=== PATIENT | male | born 1975 | race Caucasian/White ===

== ENCOUNTER 2019-02-24 13:34 | Inpatient (IN) | payer BC, OTHER ==
[2019-02-24] MEDS ORDERED: SODIUM CHLORIDE 0.9% 1,000 ML IV STA ×2 (14:10)
[2019-02-24] MEDS ORDERED: SODIUM CHLORIDE 0.9% 500 ML 500 ML IV STA (14:10)
[2019-02-24] MEDS ORDERED: MORPHINE SULFATE 4 MG/ML SYRINGE IV STA (14:10)
[2019-02-24] MEDS ORDERED: ACETAMINOPHEN TAB 325 MG TAB PO STA (14:11)
--- NOTE | 2019-02-24 14:36 | ED ---
Abdominal Pain HPI - General Chief Complaint: Abdominal Pain Stated Complaint: Abdominal pain Time Seen by Provider: 02/24/19 14:10 Source: patient Mode of arrival: ambulatory Limitations: no limitations - History of Present Illness Initial Comments: 43-year-old male with no past medical history presenting today for chief complaint of periumbilical and lower abdominal pain. Patient states that since Saturday he has had vomiting followed by periumbilical pain that is also found in the lower quadrants the abdomen including the right lower quadrant. Patient states that sharp in nature. Patient states has been worsening since Saturday. Patient denies diarrhea. States he started to have a fever today. Denies melena hematochezia. Denies hematemesis. Patient denies upper respiratory symptoms or sick contacts. Denies VELAZQUEZ, neck stiffness or previous abdominal surgeries. Patient currently complaining of nausea, chills. Patient remaining ROS (-), denies chest pain or SOB, upper abdominal pain. Patient febrile on arrival. - Related Data Home Medications Medication Instructions Recorded Confirmed Acetaminophen Tab [Tylenol Tab] 500 mg PO Q6H 02/24/19 02/24/19 Allergies Allergy/AdvReac Type Severity Reaction Status Date / Time No Known Allergies Allergy Verified 02/24/19 14:43 Review of Systems ROS Statement: Those systems with pertinent positive or pertinent negative responses have been documented in the HPI. ROS Other: All systems not noted in ROS Statement are negative. Past Medical History Past Medical History: No Reported History History of Any Multi-Drug Resistant Organisms: None Reported Past Surgical History: No Surgical Hx Reported Past Psychological History: No Psychological Hx Reported Smoking Status: Current every day smoker Past Alcohol Use History: None Reported Past Drug Use History: None Reported General Exam - General Exam Comments Initial Comments: General: The patient is awake and alert, appears uncomfortable. Eye: Pupils are equal, round and reactive to light, extra-ocular movements are intact. No nystagmus. There is normal conjunctiva bilaterally. No signs of icterus. Ears, nose, mouth and throat: There are moist mucous membranes and no oral lesions. Cardiovascular: There is a regular rate and rhythm. No murmur, rub or gallop is appreciated. Respiratory: Lungs are clear to auscultation, respirations are non-labored, breath sounds are equal. No wheezes, stridor, rales, or rhonchi. Gastrointestinal: Soft, non-distended, diffusely tender to palpation of the lower aspect of the abdomen without masses or organomegaly noted. There is no rebound. Some guarding is present. No CVA tenderness. Bowel sounds are unremarkable. Musculoskeletal: Normal ROM, no tenderness. Strength 5/5. Sensation intact. Pulses equal bilaterally 2+. Neurological: A&O x 3. CN II-XII intact grossly, There are no obvious motor or sensory deficits. Coordination appears grossly intact. Speech is normal. Skin: Skin is warm and dry and no rashes or lesions are noted. Psychiatric: Cooperative, appropriate mood & affect, normal judgment. Limitations: no limitations Course Vital Signs 02/24/19 02/24/19 02/24/19 13:35 17:45 20:53 Temperature 101.2 F H 102.0 F H 99.1 F Pulse Rate 94 81 90 Respiratory 20 18 18 Rate Blood Pressure 112/76 110/76 112/77 O2 Sat by Pulse 100 95 98 Oximetry Medical Decision Making - Medical Decision Making 43-year-old male presented for low abdominal pain x3 days. Fever. CT revealed findings consistent with a very enlarged appendicitis with abnormalities consistent with a microperforation. Patient was started on Zosyn. Patient has been given IV hydration as well as IV pain medications in the emergency department. Given patient's fever uncontrolled patient will be given ofirmev. Patient states was discussed mentating provider Dr. Yancey. He did contact on- call surgeon Dr. Carrasquillo. Who accepted patient admission states he states he will perform surgery tomorrow patient ordered NPO, surgeon is agreeable to Zosyn every 8 hours. Patient is IV antiemetics as well as IV analgesics ordered. D iscussed CT results with patient he is agreeable with admission. - Lab Data Result diagrams: 02/24/19 15:25 02/24/19 15:25 Lab Results 02/24/19 02/24/19 02/24/19 Range/Units 15:25 15:25 15:25 WBC 9.5 (3.8-10.6) k/uL RBC 4.88 (4.30-5.90) m/uL Hgb 15.4 (13.0-17.5) gm/dL Hct 43.5 (39.0-53.0) % MCV 89.3 (80.0-100.0) fL MCH 31.6 (25.0-35.0) pg MCHC 35.4 (31.0-37.0) g/dL RDW 11.9 (11.5-15.5) % Plt Count 178 (150-450) k/uL Neutrophils % 90 % Lymphocytes % 5 % Monocytes % 4 % Eosinophils % 0 % Basophils % 0 % Neutrophils # 8.6 H (1.3-7.7) k/uL Lymphocytes # 0.5 L (1.0-4.8) k/uL Monocytes # 0.4 (0-1.0) k/uL Eosinophils # 0.0 (0-0.7) k/uL Basophils # 0.0 (0-0.2) k/uL Sodium 137 (137-145) mmol/L Potassium 3.8 (3.5-5.1) mmol/L Chloride 101 (98-107) mmol/L Carbon Dioxide 24 (22-30) mmol/L Anion Gap 12 mmol/L BUN 12 (9-20) mg/dL Creatinine 0.84 (0.66-1.25) mg/dL Est GFR (CKD-EPI)AfAm >90 (>60 ml/min/1.73 sqM) Est GFR (CKD-EPI)NonAf >90 (>60 ml/min/1.73 sqM) Glucose 107 H (74-99) mg/dL Plasma Lactic Acid Kwan 1.1 (0.7-2.0) mmol/L Calcium 9.7 (8.4-10.2) mg/dL Total Bilirubin 1.1 (0.2-1.3) mg/dL AST 33 (17-59) U/L ALT 20 L (21-72) U/L Alkaline Phosphatase 81 (38-126) U/L Total Protein 7.5 (6.3-8.2) g/dL Albumin 4.4 (3.5-5.0) g/dL Amylase 49 (30-110) U/L Lipase 25 (23-300) U/L Disposition Clinical Impression: Appendicitis, Abdominal pain, Appendicitis with perforation Disposition: ADMITTED IP TO THIS [facility] Condition: Stable Is patient prescribed a controlled substance at d/c from ED?: No Time of Disposition: 18:32 Decision to Admit Reason: Admit from EC Decision Date: 02/24/19 Decision Time: 18:32
[2019-02-24] MEDS: ONDANSETRON 4 MG/2 ML VIAL IVP STA (15:35)
[2019-02-24] MEDS ORDERED: PIPERACILLIN-TAZOBACTAM 3.375 GM in SODIUM CHLORIDE 0.9% 100 ML IVPB STA (15:48)
[2019-02-24 15:54] LABS: ALT 20 U/L (21-72); AST 33 U/L (17-59); African American GFR (CKD) >90 (>60 ml/min/1.73 sqM); Albumin 4.4 g/dL (3.5-5.0); Alkaline Phosphatase 81 U/L (38-126); Amylase 49 U/L (30-110); Anion Gap 12 mmol/L; Blood Urea Nitrogen 12 mg/dL (9-20); Calcium 9.7 mg/dL (8.4-10.2); Carbon Dioxide 24 mmol/L (22-30); Chloride 101 mmol/L (98-107); Glucose 107 mg/dL (74-99); Potassium 3.8 mmol/L (3.5-5.1); Sodium 137 mmol/L (137-145); Total Bilirubin 1.1 mg/dL (0.2-1.3); Total Protein 7.5 g/dL (6.3-8.2)
[2019-02-24 16:39] LABS: Basophils % (A) 0 %; Eosinophils % (A) 0 %; HCT 43.5 % (39.0-53.0); HGB 15.4 gm/dL (13.0-17.5); Lymphocytes # (A) 0.5 k/uL (1.0-4.8); Lymphocytes % (A) 5 %; MCH 31.6 pg (25.0-35.0); MCHC 35.4 g/dL (31.0-37.0); MCV 89.3 fL (80.0-100.0); Mean Platelet Volume 6.8; Monocytes # (A) 0.4 k/uL (0-1.0); Monocytes % (A) 4 %; Neutrophils # (A) 8.6 k/uL (1.3-7.7); Neutrophils % (A) 90 %; Platelet Count 178 k/uL (150-450); RBC 4.88 m/uL (4.30-5.90); RDW 11.9 % (11.5-15.5); WBC 9.5 k/uL (3.8-10.6)
[2019-02-24] MEDS ORDERED: MORPHINE SULFATE 4 MG/ML SYRINGE IVP STA (17:32)
[2019-02-24] MEDS ORDERED: IBUPROFEN 800 MG TAB PO STA (18:11)
--- NOTE | 2019-02-24 18:29 | CT ---
EXAMINATION TYPE: CT abdomen pelvis w IV and oral con DATE OF EXAM: 02/24/2019 COMPARISON: None HISTORY: RLQ pain fever CT DLP: 844.8 mGycm Automated exposure control for dose reduction was used. TECHNIQUE: Helical acquisition of images was performed from the lung bases through the pelvis. CONTRAST: Performed without Oral Contrast and with IV Contrast, patient injected with 100 mL of Isovu e 300. FINDINGS: LUNG BASES: No significant abnormality is appreciated. LIVER/GB: No significant abnormality is appreciated. PANCREAS: No significant abnormality is seen. SPLEEN: There is mild splenomegaly noted measuring 14 x 12 x 6 cm. No focal splenic lesions. ADRENALS: No significant abnormality is seen. KIDNEYS: No significant abnormality is seen. RETROPERITONEAL ADENOPATHY: None visualized REPRODUCTIVE ORGANS: No significant abnormality is seen URINARY BLADDER: No significant abnormality is seen. PELVIC ADENOPATHY: None visualized. OSSEOUS STRUCTURES: No significant abnormality is seen. BOWEL: The appendix is located at McBurney's point. It is markedly distended and indistinct, with ca liber measuring 17-18 mm and with associated prominent periappendiceal edematous reticulation of the adipose. Moreover, there are tiny bubbles of extraluminal gas in the chris-appendiceal adipose, and th ere is secondary inflammation of the terminal ileum with associated fluid-distended but not dilated s mall bowel loops throughout the 4 quadrants. These small bowel loops measure up to 2.7 cm caliber. Th e oral contrast reached the transverse colon. PERITONEAL CAVITY: There is no pneumoperitoneum. A small volume of fluid seen dependently within the pelvis, likely reactive. OTHER: No acute vascular findings. IMPRESSION: COMPLICATED ACUTE APPENDICITIS DISCUSSED, BUT NEGATIVE FOR ABSCESS. Mild splenomegaly incidentally noted. Results discussed just now with the ordering clinician, to ensure intact communications.
[2019-02-24] MEDS ORDERED: ACETAMINOPHEN IV (For NPO) 1,000 MG in EMPTY BAG 1 BAG IVPB ONE (18:31)
[2019-02-24] MEDS ORDERED: NALOXONE 0.4 MG/ML 1 ML VIAL IV PRN (18:32)
[2019-02-24] MEDS ORDERED: ONDANSETRON 4 MG/2 ML VIAL IVP PRN (18:32)
[2019-02-24] MEDS: MORPHINE SULFATE 4 MG/ML SYRINGE IV PRN ×2 (19:01→22:19)
[2019-02-24] MEDS ORDERED: MORPHINE SULFATE 2 MG/ML SYRINGE IVP STA (21:36)
[2019-02-24] MEDS: SODIUM CHLORIDE 0.9% 1,000 ML IV SCH (22:15)
[2019-02-25] MEDS ORDERED: MORPHINE SULFATE 4 MG/ML SYRINGE ONE (03:35)
[2019-02-25] MEDS: SODIUM CHLORIDE 0.9% 1,000 ML IV SCH ×2 (07:46→13:40)
[2019-02-25] MEDS: PIPERACILLIN-TAZOBACTAM 3.375 GM in SODIUM CHLORIDE 0.9% 100 ML IVPB SCH ×3 (07:46→15:25)
[2019-02-25] MEDS: MORPHINE SULFATE 4 MG/ML SYRINGE IV PRN (08:27)
[2019-02-25] MEDS: PANTOPRAZOLE 40 MG/10 ML VIAL IVP SCH (08:28)
--- NOTE | 2019-02-25 08:54 | P.GSHP ---
History of Present Illness H&P Date: 02/25/19 CHIEF COMPLAINT: abdominal pain HISTORY OF PRESENT ILLNESS: 43-year-old male who presented to the emergency room a chief complaint of abdominal pain and fever. Patient states he has been experiencing abdominal pain since Saturday. Patient states he went out to dinner and had fish and shrimp and then he began having severe abdominal pain. Patient reports nausea and multiple episodes of emesis at home. Patient thought he had gotten food poisoning from the restaurant. He began having fevers yesterday so he decided to come to the emergency room for further evaluation. PAST MEDICAL HISTORY: See list. PAST SURGICAL HISTORY: See list. SOCIAL HISTORY: No illicit drug use. REVIEW OF SYSTEMS: CONSTITUTIONAL: Reports fevers prior to hospitalization. HEENT: Denies blurred vision, vision changes, or eye pain. Denies hemoptysis CARDIOVASCULAR: Denies chest pain or pressure. RESPIRATORY: No shortness of breath. GASTROINTESTINAL: Refer to HPI for pertinent findings HEMATOLOGIC: Denies bleeding disorders. GENITOURINARY: Denies any blood in urine. SKIN: Denies pruitis. Denies rash. PHYSICAL EXAM: VITAL SIGNS: Reviewed. GENERAL: Well-developed in no acute distress. HEENT: No sclera icterus. Extraocular movements grossly intact. Moist buccal mucosa. Head is atraumatic, normocephalic. ABDOMEN: Soft. Nondistended. Tenderness to right lower quadrant and periumbilical region. NEUROLOGIC: Alert and oriented. Cranial nerves II through XII grossly intact. LABORATORY DATA: WBC 9.5. Hemoglobin 15.4. Platelet count 178. Lactic acid 1.1. IMAGING: CT abdomen and pelvis: Markedly distended appendix and indistinct with caliber measuring 17-18 mm and with associated prominent periappendiceal edematous reticulation of the adipose. Tiny bubbles of extraluminal gas in the chris- appendiceal adipose and secondary inflammation of the terminal ileum.. I mpression complicated acute appendicitis. Negative for abscess. ASSESSMENT: 1. Abdominal pain 2. Complicated acute appendicitis with microperforation PLAN: 1. Nothing by mouth. Continue IV fluids 2. Continue Zosyn IV every 8 hours 3. Patient to undergo laparoscopic appendectomy today with Dr. Carrasquillo Nurse practitioner note has been reviewed by physician. Signing provider agrees with the documented findings, assessment, and plan of care. Past Medical History Past Medical History: No Reported History History of Any Multi-Drug Resistant Organisms: None Reported Past Surgical History: No Surgical Hx Reported Past Psychological History: No Psychological Hx Reported Smoking Status: Current every day smoker Past Alcohol Use History: None Reported Past Drug Use History: None Reported Medications and Allergies Home Medications Medication Instructions Recorded Confirmed Type Acetaminophen Tab [Tylenol Tab] 500 mg PO Q6H 02/24/19 02/24/19 History Allergies Allergy/AdvReac Type Severity Reaction Status Date / Time No Known Allergies Allergy Verified 02/24/19 14:43 Surgical - Exam Vital Signs Temp Pulse Resp BP Pulse Ox 101.2 F H 94 20 112/76 100 02/24/19 13:35 02/24/19 13:35 02/24/19 13:35 02/24/19 13:35 02/24/19 13:35 Results - Labs 02/24/19 15:25 02/24/19 15:25 Abnormal Lab Results - Last 24 Hours (Table) 02/24/19 02/24/19 Range/Units 15:25 15:25 Neutrophils # 8.6 H (1.3-7.7) k/uL Lymphocytes # 0.5 L (1.0-4.8) k/uL Glucose 107 H (74-99) mg/dL ALT 20 L (21-72) U/L Diabetes panel 02/24/19 Range/Units 15:25 Sodium 137 (137-145) mmol/L Potassium 3.8 (3.5-5.1) mmol/L Chloride 101 (98-107) mmol/L Carbon Dioxide 24 (22-30) mmol/L BUN 12 (9-20) mg/dL Creatinine 0.84 (0.66-1.25) mg/dL Glucose 107 H (74-99) mg/dL Calcium 9.7 (8.4-10.2) mg/dL AST 33 (17-59) U/L ALT 20 L (21-72) U/L Alkaline Phosphatase 81 (38-126) U/L Total Protein 7.5 (6.3-8.2) g/dL Albumin 4.4 (3.5-5.0) g/dL Calcium panel 02/24/19 Range/Units 15:25 Calcium 9.7 (8.4-10.2) mg/dL Albumin 4.4 (3.5-5.0) g/dL Pituitary panel 02/24/19 Range/Units 15:25 Sodium 137 (137-145) mmol/L Potassium 3.8 (3.5-5.1) mmol/L Chloride 101 (98-107) mmol/L Carbon Dioxide 24 (22-30) mmol/L BUN 12 (9-20) mg/dL Creatinine 0.84 (0.66-1.25) mg/dL Glucose 107 H (74-99) mg/dL Calcium 9.7 (8.4-10.2) mg/dL Adrenal panel 02/24/19 Range/Units 15:25 Sodium 137 (137-145) mmol/L Potassium 3.8 (3.5-5.1) mmol/L Chloride 101 (98-107) mmol/L Carbon Dioxide 24 (22-30) mmol/L BUN 12 (9-20) mg/dL Creatinine 0.84 (0.66-1.25) mg/dL Glucose 107 H (74-99) mg/dL Calcium 9.7 (8.4-10.2) mg/dL Total Bilirubin 1.1 (0.2-1.3) mg/dL AST 33 (17-59) U/L ALT 20 L (21-72) U/L Alkaline Phosphatase 81 (38-126) U/L Total Protein 7.5 (6.3-8.2) g/dL Albumin 4.4 (3.5-5.0) g/dL
[2019-02-25] MEDS: HYDROmorphone 1 MG/ML 1 ML SYRINGE IVP PRN ×4 (09:55→21:00)
[2019-02-25] MEDS ORDERED: IV FLUID CONTINUATION 1,000 ML IV ONE (11:33)
[2019-02-25] MEDS: HEPARIN SODIUM,PORCINE 5,000 UNIT/ML 1 ML VIAL SQ SCH ×2 (11:42→21:00)
[2019-02-25] MEDS: ONDANSETRON 4 MG/2 ML VIAL IVP STA (11:43)
[2019-02-25] MEDS ORDERED: GLYCOPYRROLATE 0.2 MG/ML 2 ML VIAL ONE (11:46)
[2019-02-25] MEDS ORDERED: LIDOCAINE 1% INJ 10MG/ML (20 ML MDV) ONE (11:46)
[2019-02-25] MEDS ORDERED: ROCURONIUM BROMIDE 10 MG/ML 10 ML VIAL IV ONE (11:46)
[2019-02-25] MEDS ORDERED: MIDAZOLAM 2 MG/2 ML VIAL ONE (11:46)
[2019-02-25] MEDS ORDERED: PROPOFOL 10 MG/ML 20 ML VIAL IV ONE (11:46)
[2019-02-25] MEDS ORDERED: SUCCINYLCHOLINE CHLORIDE 100 MG/5 ML SYR IV ONE (11:46)
[2019-02-25] MEDS ORDERED: fentaNYL (PF) 50 MCG/ML 2 ML AMP ONE (11:46)
[2019-02-25] MEDS ORDERED: NEOSTIGMINE 1 MG/ML 10 ML VIAL ONE (11:46)
[2019-02-25] MEDS ORDERED: KETOROLAC 30 MG/ML 1 ML VIAL ONE (11:46)
[2019-02-25] MEDS ORDERED: BUPIVACAINE (PF) 0.5% 30 ML VIAL SQ ONE (12:10)
--- NOTE | 2019-02-25 13:06 | P.OP ---
Date of Procedure: 02/25/19 Preoperative Diagnosis: Acute appendicitis Postoperative Diagnosis: Acute appendicitis with perforation Procedure(s) Performed: Laparoscopic appendectomy Anesthesia: ROSARIO Surgeon: Alexis Carrasquillo Estimated Blood Loss (ml): 5 Pathology: other (Appendix) Condition: stable Disposition: PACU Description of Procedure: HaThe patient's placed on the operating table in the supine position. The patient received general anesthesia. The abdomen was prepped and draped in the usual sterile fashion. The skin was anesthetized 1% local Xylocaine at the trocar sites. Using an 11 blade the skin was incised at the umbilicus. The umbilicus was grasped with a Susan clamp and then a Veress needle was placed into the peritoneal cavity. Position of the Veress needle was confirmed with positive drop test. After adequate insufflation a 5 mm trocar was placed into the peritoneal cavity. The abdomen was further insufflated. And then the laparoscope was placed in the peritoneal cavity. Next a 5 mm trocar was placed in the midline suprapubic position. And then a 10 mm trocar was placed in the midline epigastric position. The patient was rotated with the right side up and in Trendelenburg. The appendix was visualized. The appendix appeared to be inflamed. There was evidence of perforation appendix The appendix was grasped and then using the Harmonic scissors the mesoappendix was divided. A PDS Endoloop was then placed around the base of the appendix. And then the appendix was divided using Harmonic scissors. The appendix was placed into an Endo Catch and brought out through the 10 mm trocar site. The abdomen was irrigated. There is no bleeding seen. The trochars withdrawn. The skin was closed interrupted 3-0 Monocryl suture. Dermabond dressing was applied. Patient was sent to recovery room in stable condition.
[2019-02-25] MEDS ORDERED: HYDROmorphone 1 MG/ML 1 ML SYRINGE IM PRN (13:07)
--- NOTE | 2019-02-25 16:31 | P.CONS ---
History of Present Illness - History of Present Illness 43-year-old pleasant gentleman was admitted for right lower quadrant abdominal pain patient has the symptoms going on since Saturday severe abdominal pain sharp in nature patient is found to have appendicitis patient has high-grade fever as well and sepsis secondary to appendicitis patient is presently on Zosyn underwent appendectomy. Patient pain is well controlled at this time. Patient had multiple episodes of nausea vomiting before this hospitalization Review of Systems REVIEW OF SYSTEMS: CONSTITUTIONAL: No fever, no malaise, no fatigue. HEENT: No recent visual problems or hearing problems. Denied any sore throat. CARDIOVASCULAR: No chest pain, orthopnea, PND, no palpitations, no syncope. PULMONARY: No shortness of breath, no cough, no hemoptysis. GASTROINTESTINAL: As mentioned in HPI NEUROLOGICAL: No headaches, no weakness, no numbness. HEMATOLOGICAL: Denies any bleeding or petechiae. GENITOURINARY: Denies any burning micturition, frequency, or urgency. MUSCULOSKELETAL/RHEUMATOLOGICAL: Denies any joint pain, swelling, or any muscle pain. ENDOCRINE: Denies any polyuria or polydipsia. The rest of the 14-point review of systems is negative. Past Medical History Past Medical History: No Reported History History of Any Multi-Drug Resistant Organisms: None Reported Past Surgical History: No Surgical Hx Reported Past Psychological History: No Psychological Hx Reported Smoking Status: Current every day smoker Past Alcohol Use History: None Reported Past Drug Use History: None Reported Medications and Allergies Home Medications Medication Instructions Recorded Confirmed Type Acetaminophen Tab [Tylenol Tab] 500 mg PO Q6H 02/24/19 02/24/19 History Allergies Allergy/AdvReac Type Severity Reaction Status Date / Time No Known Allergies Allergy Verified 02/24/19 14:43 Physical Exam Vitals: Vital Signs Temp Pulse Pulse Pulse Resp BP BP 02/25/19 14:40 86 124/72 02/25/19 14:25 82 123/75 02/25/19 14:10 80 118/72 02/25/19 13:55 81 120/72 02/25/19 13:40 98.7 F 79 16 114/69 02/25/19 13:00 77 16 116/69 02/25/19 12:58 75 16 121/68 02/25/19 12:43 75 16 127/86 02/25/19 12:28 97.3 F L 89 16 133/83 02/25/19 11:36 99 F 68 16 119/82 02/24/19 22:06 99.6 F 82 22 103/77 02/24/19 21:40 98.6 F 82 18 110/76 02/24/19 20:53 99.1 F 90 18 112/77 02/24/19 17:45 102.0 F H 81 18 110/76 Pulse Ox 02/25/19 14:40 02/25/19 14:25 02/25/19 14:10 02/25/19 13:55 02/25/19 13:40 94 L 02/25/19 13:00 99 02/25/19 12:58 93 L 02/25/19 12:43 97 02/25/19 12:28 96 02/25/19 11:36 99 02/24/19 22:06 96 02/24/19 21:40 96 02/24/19 20:53 98 02/24/19 17:45 95 Intake and Output 02/25/19 02/25/19 02/25/19 06:59 14:59 22:59 Intake Total 900 Output Total 10 Balance 890 Intake: IV 900 Output: Estimated Blood Loss 10 Other: Voiding Method Toilet Toilet # Voids 1 PHYSICAL EXAMINATION: GENERAL: The patient is alert and oriented x3, not in any acute distress. Well developed, well nourished. Bit drowsy from my anesthesia HEENT: Pupils are round and equally reacting to light. EOMI. No scleral icterus. No conjunctival pallor. Normocephalic, atraumatic. No pharyngeal erythema. No thyromegaly. CARDIOVASCULAR: S1 and S2 present. No murmurs, rubs, or gallops. PULMONARY: Chest is clear to auscultation, no wheezing or crackles. ABDOMEN: Surgical site areas are clean. Bowel sounds are sluggish MUSCULOSKELETAL: No joint swelling or deformity. EXTREMITIES: No cyanosis, clubbing, or pedal edema. NEUROLOGICAL: Gross neurological examination did not reveal any focal deficits. SKIN: No rashes. Results CBC & Chem 7: 02/24/19 15:25 02/24/19 15:25 Labs: Abnormal Lab Results - Last 24 Hours (Table) 02/24/19 Range/Units 15:25 Neutrophils # 8.6 H (1.3-7.7) k/uL Lymphocytes # 0.5 L (1.0-4.8) k/uL Assessment and Plan Plan: -Sepsis: Secondary to acute appendicitis post appendectomy patient will be continued on Zosyn IV fluids will be continued. Pain management as per primary service -Nicotine abuse: Counseling was provided
[2019-02-25] MEDS ORDERED: ACETAMINOPHEN TAB 325 MG TAB PO PRN (21:43)
[2019-02-25] MEDS ORDERED: IBUPROFEN 600 MG TAB PO PRN (21:45)
[2019-02-25] MEDS ORDERED: IBUPROFEN 600 MG TAB PO SCH (22:00)
[2019-02-26] MEDS: PIPERACILLIN-TAZOBACTAM 3.375 GM in SODIUM CHLORIDE 0.9% 100 ML IVPB SCH ×4 (00:06→23:54)
[2019-02-26] MEDS: HYDROmorphone 1 MG/ML 1 ML SYRINGE IVP PRN ×5 (00:07→12:11)
[2019-02-26 00:45] LABS: Amorphous Sediment,Urine Few /hpf; Appearance,Urine Cloudy (Clear); Bilirubin,Urine Negative (Negative); Blood,Urine Trace (Negative); Color,Urine Yellow; Glucose,Urine (UA) Negative (Negative); Ketones,Urine 2+ (Negative); Leukocyte Esterase,Urine Negative (Negative); Mucus,Urine Few /hpf; Nitrite,Urine Negative (Negative); Protein,Urine 3+ (Negative); RBC,Urine 6 /hpf (0-5); Urobilinogen,Urine <2.0 mg/dL (<2.0); WBC,Urine 4 /hpf (0-5)
[2019-02-26] MEDS: SODIUM CHLORIDE 0.9% 1,000 ML IV SCH ×4 (02:41→20:42)
[2019-02-26] MEDS: HEPARIN SODIUM,PORCINE 5,000 UNIT/ML 1 ML VIAL SQ SCH ×2 (07:39→20:42)
[2019-02-26] MEDS: PANTOPRAZOLE 40 MG/10 ML VIAL IVP SCH (07:40)
[2019-02-26] MEDS: METOCLOPRAMIDE 5 MG/ML 2 ML VIAL IVP SCH ×3 (14:24→23:54)
[2019-02-26] MEDS ORDERED: SODIUM CHLORIDE 0.9% 1,000 ML IV ONE ×2 (14:27→14:35)
--- NOTE | 2019-02-26 14:30 | P.PN ---
Subjective 43-year-old male was admitted the for appendicitis and sepsis secondary to appendicitis patient had appendectomy. Patient is Zosyn patient had significant abdominal distention earlier today which improved with bowel movements at patient is still in quite a bit of pain because of which patient is not being discharged today patient will be started on Toradol to avoid opiate analogies 6. Patient is on ibuprofen but cannot take oral medication because of which ibuprofen will be discontinued. Patient was asked to ambulate in the hallways once his nausea improves patient probably can be restarted on diet. Constitutional: Denied any fatigue denied any fever. Cardio vascular: denied any chest pain, palpitations Gastrointestinal denied any nausea vomiting Pulmonary: Denied any shortness of breath cough Neurologic denied any new focal deficits All inpatient medications were reviewed and appropriate changes in these medications as dictated in the interval history and assessment and plan. Objective - Vital Signs Vital signs: Vital Signs Temp 98.5 F 02/26/19 05:12 Pulse 76 02/26/19 05:12 Resp 16 02/26/19 05:12 BP 121/71 02/26/19 05:12 Pulse Ox 93 L 02/26/19 05:12 Intake & Output 02/25/19 02/26/19 02/26/19 18:59 06:59 18:59 Intake Total 900 Output Total 10 750 Balance 890 -750 Intake: IV 900 Output: Urine 750 Estimated Blood Loss 10 Other: Voiding Method Toilet Toilet Toilet # Voids 1 1 # Bowel Movements 1 - Exam PHYSICAL EXAMINATION: GENERAL: The patient is alert and oriented x3, not in any acute distress. Well developed, well nourished. HEENT: Pupils are round and equally reacting to light. EOMI. No scleral icterus. No conjunctival pallor. Normocephalic, atraumatic. No pharyngeal erythema. No thyromegaly. CARDIOVASCULAR: S1 and S2 present. No murmurs, rubs, or gallops. PULMONARY: Chest is clear to auscultation, no wheezing or crackles. ABDOMEN: Abdomen is bit distended slightly tender bowel sounds present surgical site area clean MUSCULOSKELETAL: No joint swelling or deformity. EXTREMITIES: No cyanosis, clubbing, or pedal edema. NEUROLOGICAL: Gross neurological examination did not reveal any focal deficits. SKIN: No rashes. - Labs CBC & Chem 7: 02/24/19 15:25 02/24/19 15:25 Labs: Abnormal Lab Results - Last 24 Hours (Table) 02/25/19 Range/Units 23:10 Ur Specific May 1.040 H (1.001-1.035) Urine Protein 3+ H (Negative) Urine Ketones 2+ H (Negative) Urine Blood Trace H (Negative) Urine RBC 6 H (0-5) /hpf Amorphous Sediment Few H (None) /hpf Urine Mucus Few H (None) /hpf Microbiology - Last 24 Hours (Table) 02/24/19 15:25 Blood Culture - Preliminary Blood No Growth after 24 hours Assessment and Plan Plan: -Sepsis: Secondary to acute appendicitis post appendectomy patient will be continued on Zosyn IV fluids will be continued. Pain management as per primary service -Abdominal distention: Secondary to constipation and opiates try to avoid opiates as mentioned above continue with IV fluids patient will be nothing by mouth for now bowel rest for now. -Nicotine abuse: Counseling was provided
--- NOTE | 2019-02-26 15:57 | P.PN ---
Subjective Progress Note Date: 02/26/19 CHIEF COMPLAINT: abdominal pain HISTORY OF PRESENT ILLNESS: Patient is status post laparoscopic appendectomy. He reports significant abdominal pain. He reports feeling bloated. He reports nausea with episodes of bilious emesis today. He PHYSICAL EXAM: VITAL SIGNS: Reviewed. GENERAL: Well-developed in no acute distress. HEENT: No sclera icterus. Extraocular movements grossly intact. Moist buccal mucosa. Head is atraumatic, normocephalic. ABDOMEN: Soft. Distended. Tenderness with palpation. Surgical sites clean dry and intact. NEUROLOGIC: Alert and oriented. Cranial nerves II through XII grossly intact. ASSESSMENT: 1. Abdominal pain 2. Complicated acute appendicitis with perforation 3. Postoperative ileus PLAN: 1. Downgrade diet to NPO until his nausea and abdominal bloating improve 2. Continue IV fluids. 1L bolus x 1 3. Continue Zosyn IV every 8 hours. Repeat CBC in AM 4. Begin Reglan 10mg IV Q6 hours 5. Patient encouraged to ambulate in the hallways and increase activity Nurse practitioner note has been reviewed by physician. Signing provider agrees with the documented findings, assessment, and plan of care. Objective - Vital Signs Vital signs: Vital Signs Temp 98.8 F 02/26/19 14:05 Pulse 72 02/26/19 14:05 Resp 16 02/26/19 14:05 BP 137/89 02/26/19 14:05 Pulse Ox 97 02/26/19 14:05 Intake & Output 02/25/19 02/26/19 02/26/19 18:59 06:59 18:59 Intake Total 900 400 Output Total 10 750 Balance 890 -750 400 Intake: IV 900 Oral 400 Output: Urine 750 Estimated Blood Loss 10 Other: Voiding Method Toilet Toilet Toilet # Voids 1 1 2 # Bowel Movements 1 - Labs CBC & Chem 7: 02/24/19 15:25 02/24/19 15:25 Labs: Abnormal Lab Results - Last 24 Hours (Table) 02/25/19 Range/Units 23:10 Ur Specific [place] 1.040 H (1.001-1.035) Urine Protein 3+ H (Negative) Urine Ketones 2+ H (Negative) Urine Blood Trace H (Negative) Urine RBC 6 H (0-5) /hpf Amorphous Sediment Few H (None) /hpf Urine Mucus Few H (None) /hpf Microbiology - Last 24 Hours (Table) 02/24/19 15:25 Blood Culture - Preliminary Blood No Growth after 24 hours
[2019-02-26] MEDS: KETOROLAC 30 MG/ML 1 ML VIAL IVP PRN (16:02)
[2019-02-26] MEDS: HYDROcodone/APAP 5-325MG 1 EACH TAB PO PRN (20:43)
[2019-02-27] MEDS: KETOROLAC 30 MG/ML 1 ML VIAL IVP PRN (00:15)
[2019-02-27] MEDS: SODIUM CHLORIDE 0.9% 1,000 ML IV SCH ×4 (03:18→15:50)
[2019-02-27] MEDS: METOCLOPRAMIDE 5 MG/ML 2 ML VIAL IVP SCH ×4 (06:00→23:10)
[2019-02-27] MEDS: HYDROcodone/APAP 5-325MG 1 EACH TAB PO PRN ×4 (06:29→20:20)
[2019-02-27] MEDS: PIPERACILLIN-TAZOBACTAM 3.375 GM in SODIUM CHLORIDE 0.9% 100 ML IVPB SCH ×3 (07:21→23:10)
[2019-02-27] MEDS: PANTOPRAZOLE 40 MG/10 ML VIAL IVP SCH (07:21)
[2019-02-27] MEDS: HEPARIN SODIUM,PORCINE 5,000 UNIT/ML 1 ML VIAL SQ SCH ×2 (07:21→20:20)
[2019-02-27 11:45] LABS: African American GFR (CKD) >90 (>60 ml/min/1.73 sqM); Anion Gap 10 mmol/L; Blood Urea Nitrogen 16 mg/dL (9-20); Calcium 8.5 mg/dL (8.4-10.2); Carbon Dioxide 25 mmol/L (22-30); Chloride 104 mmol/L (98-107); Glucose 94 mg/dL (74-99); Potassium 3.4 mmol/L (3.5-5.1); Sodium 139 mmol/L (137-145)
[2019-02-27 12:00] LABS: Basophils % (A) 0 %; Eosinophils # (A) 0.1 k/uL (0-0.7); Eosinophils % (A) 2 %; HCT 34.1 % (39.0-53.0); Lymphocytes # (A) 0.7 k/uL (1.0-4.8); Lymphocytes % (A) 7 %; MCH 31.4 pg (25.0-35.0); MCHC 34.1 g/dL (31.0-37.0); Mean Platelet Volume 6.7; Monocytes # (A) 0.4 k/uL (0-1.0); Monocytes % (A) 5 %; Neutrophils # (A) 8.1 k/uL (1.3-7.7); Neutrophils % (A) 85 %; Platelet Count 235 k/uL (150-450); RBC 3.71 m/uL (4.30-5.90); WBC 9.6 k/uL (3.8-10.6)
[2019-02-27 12:02] LABS: HGB 11.6 gm/dL (13.0-17.5)
--- NOTE | 2019-02-27 12:03 | P.PN ---
Progress Note - Text Progress Note Date: 02/27/19 The patient is up ambulating the hallway. He states he feels better. He's had no further vomiting or nausea. On exam his vital signs are stable. His abdomen is soft. Patient will have his diet slowly advanced. We discussed the discharge home tomorrow.
--- NOTE | 2019-02-27 13:55 | P.PN ---
Subjective Progress Note Date: 02/27/19 Principal diagnosis: 43-year-old male was admitted the for appendicitis and sepsis secondary to appendicitis patient had appendectomy. Patient is Zosyn patient had significant abdominal distention earlier today which improved with bowel movements at patient is still in quite a bit of pain because of which patient is not being discharged today patient will be started on Toradol to avoid opiate analogies 6. Patient is on ibuprofen but cannot take oral medication because of which ibuprofen will be discontinued. Patient was asked to ambulate in the hallways once his nausea improves patient probably can be restarted on diet. Constitutional: Denied any fatigue denied any fever. Cardio vascular: denied any chest pain, palpitations Gastrointestinal denied any nausea vomiting Pulmonary: Denied any shortness of breath cough Neurologic denied any new focal deficits All inpatient medications were reviewed and appropriate changes in these medications as dictated in the interval history and assessment and plan. 02/27/2019 Patient is sitting up in bed in no acute distress. is at the bedside. Patient states that he feels much better than yesterday and continues to have some mild abdominal discomfort but is passing gas and having bowel movements. Patient has been up and walking the halls and using the incentive parameter as well. Patient is awaiting a food tray this time as he is being advanced to clear liquids per surgery. Patient denies any chest pain, palpitations, or shortness of breath. Patient denies any nausea or vomiting with only mild abdominal discomfort around the incision sites. Incisions look dry with no redness or swelling noted and tape is intact. Patient has been afebrile. Guarded prognosis. Will continue to follow closely along with surgery. Objective - Vital Signs Vital signs: Vital Signs Temp 98.6 F 02/27/19 05:25 Pulse 80 02/27/19 05:25 Resp 16 02/27/19 05:25 BP 130/82 02/27/19 05:25 Pulse Ox 95 02/27/19 08:33 Intake & Output 02/26/19 02/27/19 02/27/19 18:59 06:59 18:59 Intake Total 400 Balance 400 Intake: Oral 400 Other: Voiding Method Toilet Toilet # Voids 2 1 # Bowel Movements 1 2 - Exam GENERAL: The patient is alert and oriented x3, not in any acute distress. Well developed, well nourished. Vital signs are stable. Temp is 98.6F, pulse is 80, respirations are 16, blood pressure is 130/82, oxygen saturation is 95% on room air. HEENT: Pupils are round and equally reacting to light. EOMI. No scleral icterus. No conjunctival pallor. Normocephalic, atraumatic. No pharyngeal erythema. No thyromegaly. CARDIOVASCULAR: S1 and S2 present. No murmurs, rubs, or gallops. PULMONARY: Chest is clear to auscultation, no wheezing or crackles. ABDOMEN: Abdomen is taut with mild distention and tenderness upon palpation at the surgical sites. Surgical sites are dry and intact with no redness or swelling and tape is dry as well. MUSCULOSKELETAL: No joint swelling or deformity. EXTREMITIES: No cyanosis, clubbing, or pedal edema. NEUROLOGICAL: Gross neurological examination did not reveal any focal deficits. SKIN: No rashes. 3 small incisions midline noted on the abdomen from appendectomy are dry and tape is dry and intact as well with no redness or swelling noted. - Labs CBC & Chem 7: 02/27/19 10:38 02/27/19 10:38 Labs: Abnormal Lab Results - Last 24 Hours (Table) 02/27/19 02/27/19 Range/Units 10:38 10:38 RBC 3.71 L (4.30-5.90) m/uL Hgb 11.6 L D (13.0-17.5) gm/dL Hct 34.1 L (39.0-53.0) % Neutrophils # 8.1 H (1.3-7.7) k/uL Lymphocytes # 0.7 L (1.0-4.8) k/uL Potassium 3.4 L (3.5-5.1) mmol/L Microbiology - Last 24 Hours (Table) 02/24/19 15:25 Blood Culture - Preliminary Blood No Growth after 48 hours Assessment and Plan Assessment: -Sepsis: Secondary to acute appendicitis post appendectomy patient will be continued on Zosyn IV fluids will be continued. Pain management as per primary service -Abdominal distention: Secondary to constipation and opiates try to avoid opiates as mentioned above continue with IV fluids patient will be nothing by mouth for now bowel rest for now. Improved. Patient is being started on a clear liquid diet per surgery and will monitor closely. -Nicotine abuse: Counseling was provided Recommendations and discussion: Recommend to continue current medications, management, and symptomatic treatme nt. Currently patient is awaiting a food tray as he has been advanced to clear liquids today and will continue to follow along closely. Patient has been up and walking the halls and continues to use the incentive spirometer. Discussed with the patient at length about slowly starting diet advancing as tolerated per surgery recommendations as he was just having severe nausea and abdominal pain yesterday. Patient verbalizes understanding and agrees with this plan. Will continue to follow along closely. Guarded prognosis. Further recommendations to follow.
[2019-02-28] MEDS: HYDROcodone/APAP 5-325MG 1 EACH TAB PO PRN ×2 (00:46→04:56)
[2019-02-28] MEDS: SODIUM CHLORIDE 0.9% 1,000 ML IV SCH ×3 (02:06→12:50)
[2019-02-28] MEDS: METOCLOPRAMIDE 5 MG/ML 2 ML VIAL IVP SCH ×2 (04:56→11:17)
[2019-02-28] MEDS: PANTOPRAZOLE 40 MG/10 ML VIAL IVP SCH (08:10)
[2019-02-28] MEDS: HEPARIN SODIUM,PORCINE 5,000 UNIT/ML 1 ML VIAL SQ SCH (08:10)
[2019-02-28] MEDS: PIPERACILLIN-TAZOBACTAM 3.375 GM in SODIUM CHLORIDE 0.9% 100 ML IVPB SCH ×2 (08:10→16:04)
[2019-02-28] MEDS: KETOROLAC 30 MG/ML 1 ML VIAL IVP PRN (08:17)
[2019-02-28 10:27] LABS: HGB 11.3 gm/dL (13.0-17.5); MCH 30.9 pg (25.0-35.0); MCHC 34.3 g/dL (31.0-37.0); MCV 90.2 fL (80.0-100.0); Mean Platelet Volume 5.9; Platelet Count 268 k/uL (150-450); RBC 3.66 m/uL (4.30-5.90); RDW 11.8 % (11.5-15.5); WBC 12.1 k/uL (3.8-10.6)
[2019-02-28 10:47] LABS: African American GFR (CKD) >90 (>60 ml/min/1.73 sqM); Anion Gap 9 mmol/L; Blood Urea Nitrogen 7 mg/dL (9-20); Calcium 8.5 mg/dL (8.4-10.2); Carbon Dioxide 27 mmol/L (22-30); Chloride 104 mmol/L (98-107); Glucose 103 mg/dL (74-99); Potassium 2.8 mmol/L (3.5-5.1); Sodium 140 mmol/L (137-145)
[2019-02-28] MEDS ORDERED: Potassium Replacement Protocol 1 EACH MISC MISCELLANE PRN ×2 (10:56→15:25)
[2019-02-28] MEDS: POTASSIUM CHLORIDE ER 20 MEQ TAB.ER PO SCH ×5 (11:16→16:03)
--- NOTE | 2019-02-28 11:40 | P.DS ---
Providers Date of admission: 02/26/19 09:23 Expected date of discharge: 02/28/19 Attending physician: Alexis Carrasquillo Consults: 02/25/19 07:56 Consult Physician Routine Consulting Provider: Denice Wheat Consult Reason/Comments: medical management Do you want consulting provider notified?: Yes Primary care physician: Stated None Hospital Course: This a 43-year-old male who underwent appendectomy for acute perforated appendicitis. Patient did well postoperative. Please see hospital chart for details. Procedures: Laparoscopic appendectomy Patient Condition at Discharge: Good Plan - Discharge Summary New Discharge Prescriptions: New Docusate [Colace] 100 mg PO BID #30 capsule Levofloxacin [Levaquin] 500 mg PO DAILY #7 tab Hydrocodone/Acetaminophen [[place]away 5-325] 1 tab PO Q4HR PRN 3 Days #18 tab PRN Reason: Pain No Action Acetaminophen Tab [Tylenol Tab] 500 mg PO Q6H Discharge Medication List Acetaminophen Tab [Tylenol Tab] 500 mg PO Q6H 02/24/19 [History] Docusate [Colace] 100 mg PO BID #30 capsule 02/26/19 [Rx] Hydrocodone/Acetaminophen [Callaway 5-325] 1 tab PO Q4HR PRN 3 Days #18 tab 02/26/19 [Rx] Levofloxacin [Levaquin] 500 mg PO DAILY #7 tab 02/26/19 [Rx] Follow up Appointment(s)/Referral(s): None,Stated [Primary Care Provider] - 1-2 days Alexis Carrasquillo MD [STAFF PHYSICIAN] - 1 Week Activity/Diet/Wound Care/Special Instructions: No driving while taking [place] No lifting over 10 pounds You may shower. No soaking or tub baths Very light activity until you are reevaluated at your follow up appointment with your surgeon
--- NOTE | 2019-02-28 11:40 | P.PN ---
Progress Note - Text Progress Note Date: 02/28/19 The patient feels well. He wishes to go home. He has a slight increase his white count to 12. His potassium is 2.8. On exam his vital signs are still present soft. The patient's discharge was scheduled for today. But given the fact his potassium is low he will be held another day. We'll replace his electrolytes and repeat his CBC in the a.m.
[2019-02-28] MEDS: POTASSIUM CHLORIDE 20 MEQ in WATER FOR INJECTION 1 100ML.BAG IVPB SCH ×3 (11:57→15:30)
[2019-02-28 13:19] VITALS: BP 145/77; PULSE 75; RESP 16; TEMP 98.1
--- NOTE | 2019-02-28 17:40 | PN ---
PROGRESS NOTE DATE OF SERVICE: 02/28/2019 This 43-year-old gentleman, admitted with acute appendicitis and perforation, had appendectomy. The patient is improving significantly. The patient had significant hypokalemia, being replaced at this time. Patient is extremely keen on going home at this time. Surgery, Dr. Carrasquillo, is following the patient closely. No chest pain. No palpitations. No fever. PHYSICAL EXAMINATION: Alert and oriented x3. Pulse 75, blood pressure 145/77, respirations 16, temperature 98.1, pulse ox 95% on room air. HEENT: Conjunctivae normal. NECK: No jugular venous distention. CARDIOVASCULAR SYSTEM: S1, S2 muffled. RESPIRATORY SYSTEM: Breath sounds diminished at the bases. A few scattered rhonchi. No crackles. ABDOMEN: Soft. Mild diffuse distention. LEGS: No edema. No swelling. NERVOUS SYSTEM: No focal deficit. LABS: Potassium 2.8 and 3.2, sodium 140. ASSESSMENT: 1. Acute appendicitis with possible perforation as well as sepsis, status post laparoscopic appendectomy. 2. Increased white count. 3. Hypokalemia. 4. Abdominal distention. 5. History of nicotine dependence. RECOMMENDATIONS AND DISCUSSION: In this 43-year-old gentleman who presented with multiple medical issues, at this time I recommend to continue the current medications, continue symptomatic treatment, DVT prophylaxis, antibiotics. I would also recommend potassium supplementation. The patient may be also asked to follow up closely with his primary physician in the outpatient setting with repeat labs. As mentioned, he is extremely keen on going home. See staff notes for further information. Further recommendations to follow. MMODL / IJN: [id number] /
--- NOTE | 2019-03-04 02:02 | CDI ---
Documentation Clarification Form Date: 03/04/19 From: Luiz Whyte Phone: call [phone] Admit Date: 02/26/2019 9:23:00 AM Patient Name: Gideon Alejandro Visit Number: [id number] Discharge Date: 02/28/2019 4:08:00 PM ATTENTION: The Clinical Documentation Specialists (CDI) and [facility] Coding Staff appreciate your assistance in clarifying documentation. Please respond to the clarification below the line at the bottom and electronically sign. The CDI & [facility] Coding staff will review the response and follow-up if needed. Please note: Queries are made part of the Legal Health Record. If you have any questions, please contact the author of this message via ITS. Dr. Alexis Carrasquillo, The patient presented with the following Sepsis and Appendicits and underwent appendectomy. Ileus Mentioned in 02/26 progress note as Postoperative Ileus. Admitting diagnosis: Appendicitis, Sepsis procedure: Appendectomy History/Risk Factors: Appendicitis with perforation In order to accurately reflect this patient's severity of illness, please clarify the post-operative ileus diagnosis: Post-op ileus is an expected condition An un expected Post procedural or post-surgical condition related to surgical care(a complication care) Other, please specify Unable to determine Postoperative ileus is an expected condition MTDD
== END 2019-02-28 16:08 | disposition home or self-care (01) | DRG 853 ==
LOC: EC 13:34 → 4MS4W 18:30 → OBSVTOIN 02-26 09:23
PROVIDERS: ADMIT Surgery; ATTEND Surgery
PROC: 0DTJ4ZZ Resection of Appendix, Percutaneous Endoscopic Approach (ICD-10-PCS; principal; 2019-02-25 09:00)
DX: A41.9 Sepsis, unspecified organism (principal); K35.32 Acute appendicitis with perforation, localized peritonitis, and gangrene, without abscess; K56.7 Ileus, unspecified; E87.6 Hypokalemia; F17.200 Nicotine dependence, unspecified, uncomplicated
CPT/HCPCS: 36415; 74177; 80048; 80053; 81001; 82150; 83605; 83690; 84132; 85025; 85027; 87040; 87324; 88304; 94760; 96361; 96365; 96366; 96367; 96375; 96376; 99285